=== PATIENT | male | born 1930 | race Caucasian/White ===

== ENCOUNTER 2017-09-18 09:06 | Outpatient (RCR) | payer MEDICARE, OTHER ==
[2017-08-09 12:24] VITALS: Ht 172.7 cm; Wt 77.1 kg
[~2017-09-18] VITALS: Ht 172.7 cm; Wt 77.1 kg
[~2017-09-18 09:06] MED LIST: AMOX1TAB9 PO; ASPI-1441 PO; ASPI-719 PO; ASPI-757 PO; AZIT-1 PO; CHOL200025 PO; CIPR-344 PO; CYAN500T38 PO; EZET1TAB81 PO; FINA5TAB67 PO; FLUD0.1T12 PO; FOL1 PO; GUAI120L3 PO; HYDR-3250 PO; HYDR1CAP2 PO; LEVO-85 PO; LEVO750T27 PO; LOR5/325 PO; MIDO2.5T12 PO; NYST100016 PO; OMEP40CA48 PO; PAN40 PO; POTA-23 PO; PRE5 PO; PRED-1 PO; PRED20TA6 PO; SIMV-49 PO; TAMS0.4C70 PO; TER2 PO; TERA1CAP38 PO
--- NOTE | 2017-09-21 13:43 | Medical Nutrition Therapy ---
Nutrition Anthropometrics Height (Inches): 68.00 Weight (Pounds): 170 (stated wt) BMI Calculated: 26.76 Ho Nutrition Score: Ho Nutrition Risk Score: Dietary Referral Nutrition Risk Factors: Diff. Swallowing Nutrition Risk Comment: Nutrition/Food History was following heart healthy diet Breakfast: 2/3c oatmeal/raisens/sugar; cottage cheese pancakes or egg casserol (1X/wk) Lunch: soup, 1c fruit and veg, Dinner: 40z meat, 1c starch , veg Snacks: smoothies, fruit, nuts Nutritional Education Nutrition Education Topic: Other (high Na, low carb) Learning Readiness: Interested Teaching Methods: Discussion, Handout, Demonstration Response to Teaching: Verbalize understanding Teaching Recipient: Patient, Significant Other Nutrition Counseling: Pt has dx Stahge 2 CKD. Having hypotension. PCP ordered high Na, low carb diet. Reviewed typical day. Pt eats high CHO brkft. Reviewed high CHO foods, reviewed high Na foods. stated concern that high Na foods were "not healthy" and were foods they avoided. Encouraged higher Na foods that were low in saturated fats, high in poly and mono fats. Encouraged pretzels, nuts, dill pickels, tomato juice as snacks. 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
[2017-09-27] MEDS ORDERED: FLUT16SP19 NS (09:39)
== END 2017-10-23 ==
LOC: DIET 09:06
PROVIDERS: ATTEND Family Medicine
DX: I95.1 Orthostatic hypotension (principal); N18.2 Chronic kidney disease, stage 2 (mild); Z68.26 Body mass index [BMI] 26.0-26.9, adult
CPT/HCPCS: 97802

== ENCOUNTER → 2017-10-29 | Outpatient (CLI) | payer MEDICARE, OTHER ==
[2017-08-09 12:24] VITALS: BMI 26.8
[~2017-10-29] MED LIST changes: +FLUT16SP19 NS
[2017-10-29 10:35] LABS: PLATELET COUNT, AUTOMATED 224 K/uL (150-450)
== END ==
LOC: LAB 10:12
PROVIDERS: ATTEND Family Medicine
DX: I95.9 Hypotension, unspecified (principal)
CPT/HCPCS: 36415; 82310; 82374; 82435; 82565; 82947; 84132; 84295; 84520; 85025

== ENCOUNTER → 2017-12-10 | Outpatient (CLI) | payer MEDICARE, OTHER ==
[2017-08-09 12:24] VITALS: BMI 26.8
[2017-12-10 09:07] LABS: PLATELET COUNT, AUTOMATED 231 K/uL (150-450)
== END ==
LOC: LAB 08:47
PROVIDERS: ATTEND Family Medicine
DX: I95.9 Hypotension, unspecified (principal)
CPT/HCPCS: 36415; 82310; 82374; 82435; 82565; 82947; 84132; 84295; 84520; 85025

== ENCOUNTER → 2018-01-17 | Outpatient (CLI) | payer MEDICARE, OTHER ==
[2017-08-09 12:24] VITALS: BMI 26.8
[~2018-01-17] MED LIST changes: +BARIUM SULFATE 148 GM POWDER ONE; +BARIUM SULFATE 240 ML ORAL SUS (NECTAR) ONE
--- NOTE | 2018-01-17 16:49 | RADIOLOGY IMAGING REPORT ---
FACILITY: [facility] PATIENT NAME: Mike Almanza : 1930 MR: [id number] V: [id number] EXAM DATE: ORDERING PHYSICIAN: ETHAN CARO TECHNOLOGIST: Location: [facility] [place] Patient: Mike Almanza : 1930 Visit/Account:[id number] Date of Sevice: 01/17/2018 Exam type: ESOPH VIDEO SWALLOWING History: Dysphasia Comparison: None. Findings: The modified barium swallow was performed by the speech pathologist. Fluoroscopic assistance was pro vided. The patient received various liquid and food substances and a barium tablet. Please see the speech pathologist report for complete details. The fluoroscopy dose area product was 1293.84 micro- Resendiz per meter squared IMPRESSION: 1. As above Report Dictated By: Kaci Rivers MD at 01/17/2018 4:44 PM Report E-Signed By: Kaci Rivers MD at 01/17/2018 4:46 PM WSN:[email or web address]
== END ==
LOC: RAD 01:52
PROVIDERS: ATTEND Family Medicine
DX: R10.13 Epigastric pain (principal)
CPT/HCPCS: 74230

== ENCOUNTER 2018-02-18 10:00 | Outpatient (RCR) | payer MEDICARE, OTHER ==
[2017-08-09 12:24] VITALS: BMI 26.8
--- NOTE | 2018-01-11 12:54 | SLP SWALLOW EVALUATION NOTE ---
SPEECH THERAPY ASSESSMENT Physician: Venus Romero MD Clinician: Laura Barnes MS, [facility]-COMPUTER TECHNOLOGY TRAINER Type of Assessment: Dysphagia Evaluation Patient: Mike Almanza : 1930 Evaluation Date: 01/11/2018 BACKGROUND The patient is an 87-year-old male referred for outpatient dysphagia evaluation via primary care physician 2/2 reports of difficulty swallowing thin liquids. An ST swallow evaluation is warranted to further evaluate swallow structure and function, analyze potential cause of reported swallowing deficits, and make appropriate referrals for dysphagia management. PREVIOUS LEVEL OF FUNCTION: Primary Medical Diagnosis: R13.10; dysphagia Prior Level of Function: Independent Medical Complications/Past Medical History: Pt reports history of hospitalization for significant hypotension in July 2017. Hypotensive episode coincided w/ reports of throat discomfort, difficulty talking, throat dryness, and increased difficulty swallowing. Pt consulted w/ ENT for nasopharyngoscopy. Results indicated acute pharyngitis. Since July, pt reports alleviation in throat discomfort, but continues to observe coughing with thin liquids, suspicions of material "going down the wrong pipe," accumulation of clear or milky phlegm, and intermittent heartburn. Of note, pt also w/ hx of esophogram in 2011. Report describes hiatal hernia, large amount of reflux, mild mucosal edema in esophagus, and prominent impression from CP muscle along posterior aspect of cervical esophagus. COGNITION/COMMUNICATION: Pain Scale (0-10): 0 LOC / Participation: alert, cooperative, asks appropriate questions, verbalizes appropriate suggestions Cognitive-Linguistic: Intact. Formal assessment not warranted. Cognitive- Linguistic deficits impact swallow function/safety, or response to therapy: No; no deficits observed. Functional Communication: Patient has functional communication tasks for independence and safety including communication of medical history and perceived signs/symptoms. SPEECH Apraxia: Non-apraxic Dysarthric: Non-dysarthric Overall intelligibility: WNL VOICE Vocal Deficits: No Changes to vocal quality: denies DYSPHAGIA EAT-10: 3; A score of 3 or greater may indicate swallowing problems. Score is generated via patient response to 10 questions based on a 0-4 subjective rating scale. A score of 0 indicates no problem, whereas a score of 4 indicates a severe problem. Patient reported the following: Swallowing liquids takes extra effort (2) Coughing occurs while eating (1) DREP: Water Swallow Test Extraoral loss: pass Oral transit time: pass Nasal reflux: pass Multiple swallows: fail; multiple swallows required to clear bolus Laryngeal elevation: fail; elevation and excursion somewhat to reduced to palpation Cervical auscultation: not assessed Oxygen saturation: fail; saturation decreased from 88 to 82 Voice quality: fail; patient developed subtle, gurgly vocal quality immediately after swallow Cough: fail; cough observed within first minute after swallow Choking: pass Other: pass Solid Swallow Test Extraoral loss: pass Oral transit time: pass Nasal reflux: pass Multiple swallows: pass Laryngeal elevation: fail; elevation and excursion somewhat to reduced to palpation Cervical auscultation: not assessed Oxygen saturation: pass Voice quality: pass Cough: pass Choking: pass Other: pass Sialorrhea: No Xerostomia: No; however, pt w/ complaints of dryness in throat Supplemental Oxygen Use: no Oxygen Saturation: Decrease by 4% or more w/ successive trials of thin liquids (88 to 82) Respiratory Rate: Remains stable throughout food/liquid trials. COPD Dx: no Oral Structure and Function: Within functional limits for speech and swallow. Oromotor exam was unremarkable w/ adequate strength, ROM, and coordination of all oral musculature. Hyolaryngeal elevation and excursion somewhat reduced to palpation. However, this is typical of an adult >65. Pain with Swallow: Denies Oral Stage Oral Stage Dysphagia: no oral phase deficits. Self Feeds: yes Pharyngeal Stage Pharyngeal Stage Dysphagia: mild to moderate pharyngeal dysphagia characterized by slight reduction in hyolaryngeal elevation and excursion to palpation, multiple swallows required to clear bolus w/ all trials of liquids and solids, subtle changes in vocal quality w/ thin liquids, cough following trials of thins, and reports of globus sensation following trials of hard solids. Pt also w/ decrease in O2 saturation levels w/ multiple, successive swallows of thin liquids (88 decreasing to 82). Aspiration Risk: Increased Esophageal Stage Esophageal Stage Dysphagia Indicated: Yes. Pt w/ hx of esophogram in 2012. Report describes hiatal hernia, large amount of reflux, mild mucosal edema in esophagus, and prominent impression from CP muscle along posterior aspect of cervical esophagus. Odynophagia at/below Suprasternal Notch: yes. Patient able to identify material sticking near the suprasternal notch following trials of regular solids. Globus Sensation at/below Suprasternal Notch: yes. Solids. ST ASSESSMENT SUMMARY DYSPHAGIA Dysphagia Risk Evaluation Protocol DREP: Water Swallow Test: Fail, Solids Swallow Test: Fail. Indications of pharyngeal dyshpagia including decreased hyolaryngeal movement to palpation, multiple swallows to clear bolus, subtle changes in vocal quality, and decreased O2 saturation levels with multiple, successive swallows. Aspiration Risk: Aspiration Risk: Increased. Clinical s/s indicate possible laryngeal aspiration. Patient also w/ relevant pmhx of esophageal dysphagia and suspected reduction in UES opening (prominent impression from CP muscle) w/ possible difficulty clearing bolus from pharynx, and elevated risk for post swallow aspiration. Recommend MBSS and GI consult FUNCTIONAL COMMUNICATION: Intact. Patient has functional communication tasks for independence and safety. Speech Therapy Need Pharyngeal stage dysphagia increases risk for future aspiration, pneumonia, discomfort, dehydration, and weight loss. Patient/ Caregiver training /education will be continuously completed. ST will address swallow deficits via compensatory strategy training, pharyngeal exercise program, and patient/family education to support tolerance of least restrictive diet with minimized discomfort, aspiration risk, and overall impact on quality of life. RECOMMENDATIONS Verbal and written information and education provided at time of evaluation 1. Speech Therapy: 2-3x week for patient education and pharyngeal dysphagia therapy program. 2. Diet Modifications: Not indicated. 3. MBSS 4. Possible GI consult pending results of objective swallow study. PLAN OF CARE Short Term Goals 1. Patient will receive education regarding safe swallow precautions and compensatory techniques and will provide verbal /visual demonstration of comprehension. 2. The patient will participate in an 8-12wk dysphagia exercise based therapy program to address identified areas of pharyngeal weakness, improve airway protection, and minimize risk for aspiration. Plate Glass Grinder Goals: The patient will consume regular food and liquid diet without s/s of dysphagia. The patient will demonstrate independent use of strategies and compensatory techniques for optimized swallow safety. Rehabilitation Prognosis: Good. Patient demonstrates high motivation to participate, strong support via significant other, and excellent insight re: areas of pharyngeal impairment. Thank you for this referral. Please call [phone] Laura Barnes M.S., [facility]-COMPUTER TECHNOLOGY TRAINER Physician Signature Date [*] MTDD
--- NOTE | 2018-01-18 10:09 | SLP MODIFIED BARIUM SWALLOW ---
Speech Language Pathology Modified Barium Swallow Evaluation Report Date of Evaluation: 01/17/2018 Patient Name: Mike Almanza Patient : 1930 Physician: Venus Romero MD Clinician: Laura Barnes M.S., [facility]-SHIRT PRESSER BACKGROUND The patient is an 87-year-old male referred for outpatient dysphagia evaluation via primary care physician 2/2 reports of difficulty swallowing thin liquids. An ST clinical swallow evaluation was completed on 01/11/2018, w/ results suggesting mild to moderate pharyngeal dysphagia evidenced by slight reduction in hyolaryngeal excursion to palpation, multiple swallows required to clear bolus w/ all trials of liquids and solids, subtle changes in vocal quality w/ thin liquids, and cough following successive trials of thins. Pt w/ decrease in O2 saturation levels w/ multiple, successive swallows of thin liquids (88 decreasing to 82). Concerns for esophageal dysphagia were also indicated, including pt reports of globus sensation following trials of hard solids. Pt w / hx of esophogram in 2011. Report describes hiatal hernia, large amount of reflux, mild mucosal edema in esophagus, and prominent impression from CP muscle along posterior aspect of cervical esophagus. Oxygen Supplementation: None Level of Consciousness: Non-altered Cognitive/Linguistic: WNL; mild age-related impairments Orientation: x4 Language: -expressive: nonaphasic -receptive: nonaphasic Speech: -non-apraxic -non-dysarthric Voice -Dysphonia: none -Nasal emission: No -Hypernasality: No -Wet Vocal Quality: No -Patient reports no significant changes in voice. Non-verbal Oral Structure and Function: WNL Pain with Swallow: Denies, reports some discomfort MODIFIED BARIUM SWALLOW In conjunction with radiology, lateral view with trials of the following consistencies: thin barium liquid, nectar thick barium liquid, barium marked pureed, mixed food consistencies, regular textures, and a 1cm barium pill. ORAL STAGE Thin Liquids: Mild, premature posterior loss of bolus w/ large bolus of thin liquids. Flowella Thick Liquids: WFL. Pureed Foods: WFL. Regular Foods: WFL. Mixed Consistencies Foods: Mild, premature posterior loss of bolus. Barium Pill: WFL. PHARYNGEAL STAGE Thin Liquid: Mild dysphagia. Decreased BOT retraction, decreased hyolaryngeal excursion (adequate elevation), and decreased posterior pharyngeal wall movement. Delayed swallow onset observed to the level of the valleculae. Notable penetration w/ all trials of thins. Sensation appears in tact w/ efforts to clear penetrated material. However, residue remained on vocal folds w / increased volume over time. Penetration/Aspiration Scale*: 5; material enters the airway, contacts the vocal folds, and is not ejected (despite attempts). Flowella Thick Liquids: WFL Penetration/Aspiration Scale*: 1; material does not enter airway. Pureed Food: WFL Penetration/Aspiration Scale*: 1; material does not enter airway. Regular Foods: WFL Penetration/Aspiration Scale*: 1; material does not enter airway. Mixed Consistencies: Mild dysphagia. Decreased BOT retraction, decreased hyolaryngeal excursion (adequate elevation), and decreased posterior pharyngeal wall movement. Delayed swallow onset w/ premature posterior spillage of thin material (while simultaneously masticating solid textures) was observed to the level of the valleculae. Penetration of thin material observed. Sensation appears in tact w/ efforts to clear penetrated material. However, residue remained on vocal folds. Penetration/Aspiration Scale*: 5; material enters the airway, contacts the vocal folds, and is not ejected (despite attempts). Penetration/Aspiration Scale*: Thin liquid: Score of 5, contrast contacts vocal folds, not ejected from airway Flowella thick liquids: Score of 1, contrast does not enter airway Puree: Score of 1, contrast does not enter airway Mixed consistencies: Score of 5, contrast contacts vocal folds, not ejected from airway Regular solids: Score of 1, contrast does not enter airway *(Ilene et al. 1996) ESOPHAGEAL STAGE Peristaltic movement appears to be impaired. Suspected reduction in LES opening. Significant esophageal stasis w/ all observed material. BARIUM PILL: 1 cm barium pill taken with thin liquids. Significant difficulty clearing material from esophagus to stomach despite repeated swallows, liquid wash, and provision of prolonged wait-time. Refer to GI for further consult. SUMMARY Aspiration Risk: Mild risk w/ thin liquids 2/2 decreased airway protection w/ penetration observed across all thin liquid trials. Material appeared to accumulate over time despite adequate sensation of vocal folds w/ efforts to clear material. BOT, pharyngeal and hyolaryngeal excursion all somewhat reduced. 1. Diet: No need for modification in consistency of diet is indicated. 2. Patient was provided with verbal/visual education regarding swallow anatomy and safe swallow recommendations. 3. Recommend OP speech therapy to address identified areas of laryngeal/ pharyngeal weakness w/ specific focus on improving airway protection and pharyngeal clearance to minimize risk for future aspiration pneumonia. 4. Refer for GI consult 2/2 indications of esophageal dysphagia. RECOMMENDATIONS Verbal and written information provided at time of evaluation. 1. Speech Therapy: 2x week for patient education and laryngeal /pharyngeal dysphagia therapy program. 2. Diet Modifications: Not indicated. PLAN OF CARE Short Term Goals 1. Patient will receive education regarding safe swallow precautions and compensatory techniques and will provide verbal demonstration of comprehension. 2. The patient will participate in a dysphagia, exercise-based therapy program as an outpatient to improve airway protection. Nursing Home Goal 1. Patient will tolerate all trials of thin liquids with independent implementation of compensatory strategies and no overt s/sx of aspiration. Thank you for this referral. Please call [phone] to contact the SHIRT PRESSER. Laura Barnes M.S., [facility]-SHIRT PRESSER [*] MTDD
--- NOTE | 2018-02-13 14:55 | SLP PLAN OF CARE ---
SPEECH PATHOLOGY PROGRESS REPORT Physician: Venus Romero MD Progress Note Date: 02/13/2018 Clinician: Laura Barnes M.S., [facility]-SLAT BASKET MAKER MACHINE Patient: Mike Almanza : 1930 Mr. Almanza has been attending ST at [facility] 2x/wk since 01/11/2018. He attends scheduled visits regularly with no missed/cancelled visits since last report. He also consistently reports completion of dysphagia home exercise program, is highly motivated to participate, and exhibits notable reduction in clinical s/ sx of dysphagia vs status at initial evaluation. Current POC The patient has been working on the following short term goals: 1. Patient will receive education regarding safe swallow precautions and compensatory techniques and will provide verbal /visual demonstration of comprehension. 02/13 - MET. Pt w/ independent and accurate demonstration of appropriate safe swallow precautions and compensatory techniques to minimize risk for aspiration/ penetration of both liquids and solids. 2. The patient will participate in an 8-12wk dysphagia exercise based therapy program to address identified areas of pharyngeal weakness, improve airway protection, and minimize risk for aspiration. 02/13 - CONTINUE. Pt has been participating in exercise-based dysphagia program since SOC w/ specific focus on both laryngeal and pharyngeal strengthening exercises to promote hyolaryngeal elevation and excursion, improve airway protection, and support UES relaxation for overall reduction in risk for aspiration/penetration of PO material. Visits will be reduced to 1x/wk for maintained strength, appropriate technique, and evolvement of home exercise program. Long-Term Goals: The patient will consume regular food and liquid diet without s/s of dysphagia. The patient will demonstrate independent use of strategies and compensatory techniques for optimized swallow safety. SUMMARY Continue POC outlined above, reduce to 1x/week. The patient is progressing toward ST goals. Increased swallow status has been observed w/ minimization to elimination overt s/sx of aspiration w/ clinical swallow assessment. Pt also w/ self-report of decreased coughing with thin liquids outside of structured tx sessions. RECOMMENDATION Patient would benefit from continued ST to address above POC. Patient would also continue to benefit from EGD 2/2 hx of esophageal dysphagia, cricopharyngeal prominence, and ongoing complaints of globus sensation in pharynx. Referral and speech therapy reports will be passed along to primary care physician (Dr. Jose Ortiz) in [place], [place] d/t Mr. Almanza's scheduling conflicts and anticipated departure from [place] at the end of the month for summer vacation. Thank you for referring this patient to [facility], Speech- Language Pathology. Please call [phone] to contact the SLAT BASKET MAKER MACHINE with questions or concerns. Respectfully, Laura Barnes M.S., [facility]-SLAT BASKET MAKER MACHINE Physician Signature Date [*] MTDD
[~2018-02-18 10:00] MED LIST changes: -BARIUM SULFATE 148 GM POWDER ONE; -BARIUM SULFATE 240 ML ORAL SUS (NECTAR) ONE
--- NOTE | 2018-02-22 17:28 | SLP DISCHARGE NOTE ---
SPEECH PATHOLOGY DYSPHAGIA DISCHARGE SUMMARY Physician: Venus Romero MD End of Care: 02/18/2018 Clinician: Laura Barnes M.S., [facility]-INSURANCE VERIFICATION REPRESENTATIVE Patient: Mike Almanza : 1930 Mr. Almanza has been attending ST at [facility] 1-2x/wk since 01/11/2018. He attends scheduled visits regularly with no missed/cancelled visits, and consistently reports completion of dysphagia home exercise program. Mr. Almanza has demonstrated notable reduction in clinical s/sx of dysphagia vs status at initial evaluation. The patient has been working on the following short term goal since previous progress note on 02/13: 1. The patient will participate in an 8-12wk dysphagia exercise based therapy program to address identified areas of pharyngeal weakness, improve airway protection, and minimize risk for aspiration. Unable to maximize participation in full 8wk program 2/2 scheduling conflicts and summer vacation plans. Pt has been participating in exercise-based dysphagia program since SOC w/ specific focus on both laryngeal and pharyngeal strengthening exercises to promote hyolaryngeal elevation and excursion, improve airway protection, and support UES relaxation for overall reduction in risk for aspiration/penetration of PO material. Half-Way Goals: The patient will demonstrate independent use of strategies and compensatory techniques for optimized swallow safety. MET The patient will consume regular food and liquid diet without s/s of dysphagia. Re-administered the DREP assessment w/ results compared to pt status at initial evaluation on 01/11. Scores were compared to baseline measures (see below), w/ improvements noted in laryngeal excursion, maintenance in oxygen saturation levels (steady at 92), elimination of coughing w/ thin liquids, and elimination of changes in vocal quality w/ thin liquids. Pt cont to demonstrate multiple swallows to clear material, which may be 2/2 hx of CP bar and globus sensation in pharynx. Overall, pt w/ significant decrease in clinical s/sx of aspiration vs status at SOC. DREP: Water Swallow Test Extraoral loss: 4/6: pass 5/14: pass Oral transit time: 4/6: pass 5/14: pass Nasal reflux: 4/6: pass 5/14: pass Multiple swallows: 4/6: fail 5/14: fail Laryngeal elevation: 4/6: fail 14: pass Cervical auscultation: not assessed Oxygen saturation: fail; saturation decreased from 88 to 82. 5/ pass Voice quality: 4/6: fail 02/18: pass Cough: 4/6: fail 02/18: pass [place]/6: pass 02/18: pass Other: 4: pass 02/18: pass Solid Swallow Test Extraoral loss: 6: pass 02/18: pass Oral transit time: 01/11: pass 02/18: pass Nasal reflux: 6: pass 02/18: pass Multiple swallows: 6: pass 02/18: pass Laryngeal elevation: 46: fail 02/18: pass Cervical auscultation: not assessed Oxygen saturation: 6: pass 02/18: pass Voice quality: 6: pass 02/18: pass Cough: 6: pass 02/18: pass [place]/6: pass 02/18: pass Other: 01/11: pass 02/18: pass SUMMARY Mr. Almanza has demonstrated improved swallow status w/ minimization to elimination overt s/sx of aspiration during clinical swallow assessment, and improved hyolaryngeal elevation/excursion to palpation. Pt also w/ self-report of decreased coughing during consumption of thin liquids outside of structured tx sessions. However, esophageal s/sx persist. Patient may continue to benefit from EGD 2/2 hx of esophageal dysphagia, cricopharyngeal prominence, and ongoing complaints of globus sensation in pharynx. Speech therapy report ( including MBSS) wasl faxed to primary care physician (Dr. Jose Ortiz) in [place], [place] d/t Mr. Almanza's anticipated departure from [place] at the end of the February for summer vacation. Thank you for referring this patient to [facility], Speech- Language Pathology. Please call [phone] to contact the INSURANCE VERIFICATION REPRESENTATIVE with questions or concerns. Respectfully, Laura Barnes M.S., [facility]-INSURANCE VERIFICATION REPRESENTATIVE Physician Signature Date [*] MTDD
== END 2018-02-18 18:00 | disposition home or self-care (01) ==
LOC: ST 10:00
PROVIDERS: ATTEND Family Medicine
DX: R13.10 Dysphagia, unspecified (principal)
CPT/HCPCS: 74230

== ENCOUNTER → 2018-11-21 | Outpatient (CLI) | payer MEDICARE, OTHER ==
[2017-08-09 12:24] VITALS: BMI 26.8
[~2018-11-21] MED LIST changes: +RANI-318 PO
== END ==
LOC: RESP 01:19
PROVIDERS: ATTEND Family Medicine
DX: J98.4 Other disorders of lung (principal)
CPT/HCPCS: 94060; 94726; 94729